=== PATIENT | female | born 1935 | race Caucasian/White ===

== ENCOUNTER 2020-09-02 08:46 | Day surgery (SDC) | payer MEDICARE, OTHER ==
[2020-08-30 12:41] LABS: BASOPHILS % (AUTO) 0 % (0-1); EOSINOPHILS % (AUTO) 2 % (1-7); LYMPHOCYTES % (AUTO) 32 % (22-44); MEAN CORPUSCULAR HEMOGLOBIN 27.9 pg (27.0-34.8); MEAN CORPUSCULAR HGB CONC 32.9 g/dL (32.4-35.8); MEAN PLATELET VOLUME 9.3 fL (7.4-10.4); MONOCYTES % (AUTO) 11 % (2-9); NEUTROPHILS % (AUTO) 56 % (42-75); PLATELET COUNT 236 x10^3/uL (130-400); RED BLOOD COUNT 4.89 x10^6/uL (3.82-5.3); RED CELL DISTRIBUTION WIDTH 15.7 % (9.6-15.2)
[2020-08-30 12:46] LABS: ALBUMIN 3.6 g/dL (3.4-5.0); ANION GAP 7 mmol/L (5-15); CALCIUM 9.2 mg/dL (8.5-10.1); CHLORIDE 108 mmol/L (98-107)
[2020-08-30 12:51] LABS: ALANINE AMINOTRANSFERASE 30 U/L (12-78); ALKALINE PHOSPHATASE 71 U/L (45-117); CREATININE 0.85 mg/dL (0.55-1.02); TOTAL PROTEIN 7.6 g/dL (6.4-8.2)
[2020-08-30 13:00] LABS: MICROSCOPIC INDICATED
[~2020-09-02] VITALS: Ht 154.9 cm; Wt 80.2 kg
[~2020-09-02 08:46] MED LIST: LOSA25TA12 PO
[2020-09-02] MEDS ORDERED: FENTANYL PF 250 MCG/5ML ONE (09:17)
[2020-09-02] MEDS ORDERED: CEFAZOLIN 1,000 MG ONE (09:21)
[2020-09-02] MEDS ORDERED: ONDANSETRON 2MG/ML, 2ML ONE (09:21)
[2020-09-02] MEDS ORDERED: GLYCOPYRROLATE 0.2MG/1ML, 5ML ONE (09:21)
[2020-09-02] MEDS ORDERED: ROCURONIUM 10MG/ML,5ML ONE (09:21)
[2020-09-02] MEDS ORDERED: NEOSTIGMINE 1 MG/ML, 10ML ONE (09:21)
[2020-09-02] MEDS ORDERED: DEXAMETHASONE 4 MG/ML, 1ML ONE (09:21)
[2020-09-02] MEDS ORDERED: PROPOFOL 10 MG/ML, 20ML ONE (09:21)
[2020-09-02 09:22] VITALS: BP 179/94
[2020-09-02] MEDS ORDERED: CHLORHEXIDINE 15 ML UDC ONE (09:26)
[2020-09-02] MEDS ORDERED: LIDOCAINE-MPF 1%, 2ML ONE (09:27)
[2020-09-02] MEDS ORDERED: LIDOCAINE-MPF 1%, 2ML INFIL ONE (09:30)
[2020-09-02] MEDS ORDERED: LACTATED RINGERS 1,000 ML IV SCH (09:30)
[2020-09-02] MEDS ORDERED: CHLORHEXIDINE 15 ML UDC PO ONE (09:30)
[2020-09-02] MEDS ORDERED: OMNIPAQUE 350 MG/ML, 50 ML BOTTLE ONE (09:51)
[2020-09-02] MEDS ORDERED: HALOPERIDOL 5 MG/ML IV PRN (10:00)
[2020-09-02] MEDS ORDERED: MEPERIDINE/PF 25MG/0.5ML IVPush PRN (10:00)
[2020-09-02] MEDS ORDERED: hydrALAzine 20 MG/ML, 1ML IV PRN (10:00)
[2020-09-02] MEDS ORDERED: HYDROmorphone 1 MG/ML, 1ML INJ IVPush PRN (10:00)
[2020-09-02] MEDS ORDERED: FENTANYL PF 100 MCG/2ML IV PRN (10:00)
[2020-09-02] MEDS ORDERED: ACETAMINOPHEN 325 MG TABLET PO PRN (10:00)
[2020-09-02] MEDS ORDERED: LABETALOL 5MG/ML, 20ML IV PRN (10:00)
[2020-09-02] MEDS ORDERED: PROMETHAZINE 25 MG/ML, 1ML IVPush PRN (10:00)
[2020-09-02] MEDS ORDERED: OXYcodone 5 MG/5 ML ORAL.SOL UDC PO PRN (10:00)
[2020-09-02] MEDS ORDERED: morphine SULFATE 10 MG/ML, 1ML IVPush PRN (10:00)
[2020-09-02] MEDS ORDERED: OPIUM/BELLADONNA SUPP.RECT 16.2-30 MG PR PRN (11:30)
== END 2020-09-02 15:32 | disposition home or self-care (01) ==
LOC: OUT 08:46
PROVIDERS: ATTEND Urology
DX: T83.89XA Other specified complication of genitourinary prosthetic devices, implants and grafts, initial encounter (principal); N13.2 Hydronephrosis with renal and ureteral calculous obstruction; Z20.822 Contact with and (suspected) exposure to COVID-19; Z79.899 Other long term (current) drug therapy; Z87.440 Personal history of urinary (tract) infections; Z87.442 Personal history of urinary calculi; Y83.8 Other surgical procedures as the cause of abnormal reaction of the patient, or of later complication, without mention of misadventure at the time of the procedure
CPT/HCPCS: 36415; 52356; 74420; 80053; 81001; 82360; 85025; 87086; 88300; 93005; C1758; C1769; C2617; J0690; J1100; J2405; J2704; J2710; J3010; J7120; Q9967; U0003; U0005